=== PATIENT | male | born 1940 | race Caucasian/White ===

== ENCOUNTER 2020-12-26 19:06 | Emergency (ER) | payer BC ==
[~2020-12-26] VITALS: Ht 172.7 cm; Wt 68.0 kg
--- NOTE | 2020-12-26 19:58 | NUR ---
PT BIBPA C/O AGGRESSIVE BEHAVIOR. PT AAOX1, PER DAUGHTER IN LAW, PT HAS DEMENTIA. PT ATTACHED TO MONITOR AND POX. UPON ASSESSMENT, PT HAS HENNING CATH THAT IS BLOODY. AT BEDSIDE FOR EVAL. PT GIVEN BLANKET AND CALL LIGHT WITHIN REACH
[2020-12-26 20:38] LABS: BASOPHILS % (AUTO) 0.2 % (0.0-2.0); EOSINOPHILS % (AUTO) 0.2 % (0.0-6.0); HEMATOCRIT 34 % (39-51); HEMOGLOBIN 11.6 g/dL (13.5-17.5); LYMPHOCYTES # (AUTO) 0.7 K/uL (0.8-4.8); LYMPHOCYTES % (AUTO) 3.9 % (20.0-44.0); MEAN CORPUSCULAR HGB CONC 34 g/dl (31.0-36.0); MEAN CORPUSCULAR VOLUME 91 fL (80-96); MONOCYTES # (AUTO) 0.8 K/uL (0.1-1.30); MONOCYTES % (AUTO) 4.3 % (2.0-12.0); NEUTROPHILS # (AUTO) 17.3 K/uL (1.8-8.9); NEUTROPHILS % (AUTO) 91.4 % (43.0-81.0); PLATELET COUNT (AUTO) 365 K/uL (150-450); RED BLOOD CELL COUNT(AUTO) 3.77 MIL/uL (4.5-6.0); WHITE BLOOD COUNT (AUTO) 18.9 K/uL (4.3-11.0)
[2020-12-26 20:50] LABS: CALCIUM, SERUM 9.2 mg/dL (8.5-10.1); CARBON DIOXIDE 21 mmol/L (21-32); CHLORIDE 97 mmol/L (98-107); CREATININE 1.3 mg/dL (0.6-1.3); GLUCOSE 207 mg/dL (74-106); POTASSIUM 4.3 mmol/L (3.5-5.1); SODIUM SERUM 130 mmol/L (136-145); UREA NITROGEN, BLOOD 13 mg/dL (7-18)
[2020-12-26 20:57] LABS: ACETAMINOPHEN < 2 ug/ml (10-30); ALANINE AMINOTRANSFERASE 13 U/L (12-78); ALBUMIN 2.7 g/dL (3.4-5.0); ALCOHOL, BLOOD < 3 mg/dL (0-0); ALKALINE PHOSPHATASE 96 U/L (46-116); ASPARTATE AMINOTRANSFERASE 20 U/L (15-37); BILIRUBIN,DIRECT 0.2 mg/dL (0.0-0.2); BILIRUBIN,TOTAL 0.7 mg/dL (0.2-1.0); TOTAL PROTEIN, SERUM 6.9 g/dL (6.4-8.2)
--- NOTE | 2020-12-26 21:23 | NUR ---
verbal order for 5mg haldol im
[2020-12-26] MEDS ORDERED: HALOPERIDOL LACTATE INJ 5 MG/ML VIAL ONE (21:27)
[2020-12-26] MEDS: HALOPERIDOL LACTATE INJ 5 MG/ML VIAL IM ONE (21:33)
--- NOTE | 2020-12-26 22:10 | NUR ---
verbal order 2mg ativan im and 25mg benadryl im
[2020-12-26] MEDS ORDERED: diphenhydrAMINE HCL 50 MG/ML VIAL ONE (22:13)
[2020-12-26] MEDS ORDERED: LORAZEPAM INJ 2 MG/ML VIAL ONE (22:14)
[2020-12-26] MEDS: diphenhydrAMINE HCL 50 MG/ML VIAL IM ONE (22:23)
[2020-12-26] MEDS: LORAZEPAM INJ 2 MG/ML VIAL IM ONE (22:23)
--- NOTE | 2020-12-26 22:43 | NUR ---
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 ON WAY TO EVALUATE PT.
--- NOTE | 2020-12-26 23:14 | NUR ---
PT RESTING QUEITLY IN BED, ATTACHED TO MONITOR
--- NOTE | 2020-12-27 00:43 | NUR ---
PT SLEEPING, ATTACHED TO MONITOR, VSS
--- NOTE | 2020-12-27 01:15 | NUR ---
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
[2020-12-27] MEDS: LORAZEPAM 1 MG TABLET PO ONE ×2 (01:30→05:30)
[2020-12-27] MEDS ORDERED: LORAZEPAM 0.5 MG TABLET ONE ×2 (01:34→05:42)
--- NOTE | 2020-12-27 02:00 | NUR ---
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 pt can return to [facility] in the morning
--- NOTE | 2020-12-27 05:09 | NUR ---
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 eta [id number]
--- NOTE | 2020-12-27 05:56 | NUR ---
attempted to give report to [facility], no answer
--- NOTE | 2020-12-27 06:06 | NUR ---
attempted to give report to [facility], no answer
--- NOTE | 2020-12-27 06:15 | NUR ---
attempted to give report, no answer
--- NOTE | 2020-12-27 06:17 | NUR ---
gave report to [facility]
--- NOTE | 2020-12-27 06:22 | NUR ---
gave report to Iftikhar at [facility]
[2020-12-27 06:47] VITALS: BP 138/73
== END 2020-12-27 06:22 ==
LOC: ER 19:08
DX: R45.6 Violent behavior (principal); F03.90 Unspecified dementia, unspecified severity, without behavioral disturbance, psychotic disturbance, mood disturbance, and anxiety; I10 Essential (primary) hypertension; E11.9 Type 2 diabetes mellitus without complications
CPT/HCPCS: 36415; 80048; 80076; 80143; 80320; 85025; 96372 ×2; 99285; J1200; J1630; J2060; G0480